=== PATIENT | female | born 1965 | race Caucasian/White ===

== ENCOUNTER → 2017-02-08 | Outpatient (CLI) | payer MEDICAID ==
[~2017-02-08] MED LIST: ABILIFY10 MG PO; ALDACTONE 25MG25 MG PO; ALDACTONE25 MG NG; ALPRAZOLAM0.5 M3 PO; AMITRIPTYLINE 550 MG PO; APAP/BUTALBITAL1 TA1 PO; ASPIRIN 81MG TA81 MG PO; BISCOLAX5 MG PO; BUMETANIDE2 MG PO; CARVEDILOL 1212.5 MG PO; CARVEDILOL3.125 M1 PO; CARVEDILOL6.25 MG PO; CATAPRES0.2 MG PO; CEFDINIR 300MG300 MG PO; CELEXA40 MG PO; CLONIDINE HYDR0.2 MG PO; CYCLOBENZAPRINE10 MG PO; DICLOFENAC SODI75 M2 PO; DICLOFENAC SODI75 M3 PO; FENOFIBRATE145 MG PO; FENOFIBRATE160 MG PO; FIORICET1 CAP PO; FIORINAL CAPSU1 EACH PO; FUROSEMIDE80 M1 PO; FUROSEMIDE80 MG PO; GABAPENTIN 600600 MG PO; GABAPENTIN800 MG PO; HABITROL21 MG/24 H TD; HYDROCHLOROTHIA1 TA4 PO; HYDROXYZINE 25M25 MG PO; LAMICTAL 100 M100 MG PO; LAMICTAL25 MG PO; LATUDA20 MG PO; LISINOPRIL 20MG20 MG PO; LISINOPRIL20 MG PO; MUCINEX ER600 MG PO; NAPROXEN500 MG PO; NICOTINE PATCH;21 MG TD; OLANZAPINE10 MG PO; POTASSIUM CHLO20 ME4 PO; PREDNISONE 20MG20 MG PO; PREDNISONE50 MG PO; RISPERDAL 0.50.5 MG PO; SUMATRIPTAN SU100 M1 PO; SUMATRIPTAN SUC25 MG PO; TIZANIDINE HCL 44 MG NG; TOPAMAX200 MG PO; TOPIRAMATE 100100 M1 PO; TORSEMIDE20 MG PO; VENTOLIN H0.09 MG/AC IH; XANAX 1MG TABLET1 MG PO; ZYPREXA15 MG PO
--- NOTE | 2017-02-08 15:41 | CARDIOVASCULAR REPORT ---
"Venous Exam Indications: 729.5 Pain in limb. 729.81 Swelling of limb. IMPRESSIONS 1. There is no evidence of significant Reflux. 2. No evidence of deep or superficial vein thrombosis involving the left lower extremity REPORTED TO BIANKA RODNEY Left lower extremity venous duplex evaluation. Doppler flow study including spectral analysis, color and boykin scale imaging. Location: Vascular laboratory. Patient status: Outpatient. Tables: Venous flow and imaging: + +-------+ + |Location |Overall|Flow properties | + +-------+ + |Left common femoral |Patent |Normal phasicity; spontaneous; | | | |normal augmentation; compressible | + +-------+ + |Left saphenofemoral junction|Patent |Compressible | + +-------+ + |Left profunda femoral |Patent |Compressible | + +-------+ + |Left femoral |Patent |Normal phasicity; spontaneous; | | | |normal augmentation; compressible | + +-------+ + |Left greater saphenous |Patent |Normal phasicity; spontaneous; | | | |normal augmentation; compressible | + +-------+ + |Left popliteal |Patent |Normal phasicity; spontaneous; | | | |normal augmentation; compressible | + +-------+ + |Left posterior tibial |Patent |Compressible | + +-------+ + |Left peroneal |Patent |Compressible | + +-------+ + |Left gastrocnemius |Patent |Compressible | + +-------+ + |Left soleal |Patent |Compressible | + +-------+ + (Report amended ) Electronically signed by: Suhail Smith [id number]"
--- NOTE | 2017-02-09 05:57 | RADIOLOGY REPORT PS360 ---
LOWER LEG-LT HISTORY: LEFT LEG PAIN no known trauma Patient Age: 51 years: Female Ordering Physician: ANDREA WEEMS TECHNIQUE: AP lateral left lower leg COMPARISON : FINDINGS The tibia and fibula appear intact with no fracture nor lesion evident.. But question very mild edema in the soft tissues particularly towards the lateral posterior aspect of calf.. The muscle-fat interface is slightly hazy in this region. Clinical correlation required here. No radiopaque foreign body appreciated here.:: The calf tenderness or rob sign & consider duplex Doppler study lower extremity 2 view of the knee and ankle included on this lower leg study appear grossly intact. IMPRESSION: Left tibia and fibula are intact. No fracture nor stress fracture.. No osseous findings.. Only Question Minor edema posterior lateral aspect of leg. Clinical correlation required
== END ==
LOC: RT 15:11
DX: R60.9 Edema, unspecified (principal)